=== PATIENT | male | born 1945 | race Caucasian/White ===

== ENCOUNTER → 2020-07-30 | Outpatient (CLI) | payer OTHER ==
[~2020-07-30] MED LIST: ASPIR 8181 M1 PO; ATORVASTATIN CA40 MG PO; CARVEDILOL12.5 MG PO; CIPRO500 MG PO; COREG25 MG PO; ELIQUIS5 MG PO; FLAGYL500 MG PO; LISINOPRIL20 MG PO; ZOFRAN ODT4 MG PO
== END ==
LOC: CAT 09:44
PROVIDERS: ATTEND Family Medicine
DX: S13.9XXA Sprain of joints and ligaments of unspecified parts of neck, initial encounter (principal); M50.31 Other cervical disc degeneration, high cervical region; M50.321 Other cervical disc degeneration at C4-C5 level; M50.322 Other cervical disc degeneration at C5-C6 level; M47.812 Spondylosis without myelopathy or radiculopathy, cervical region; M43.12 Spondylolisthesis, cervical region; M41.82 Other forms of scoliosis, cervical region; G93.89 Other specified disorders of brain; I67.2 Cerebral atherosclerosis; X58.XXXA Exposure to other specified factors, initial encounter; Y93.89 Activity, other specified; Y92.89 Other specified places as the place of occurrence of the external cause; Y99.8 Other external cause status

== ENCOUNTER → 2020-08-05 | Outpatient (CLI) | payer OTHER | LOC: MRI 08:54 | PROVIDERS: ATTEND Family Medicine | DX: M47.22 Other spondylosis with radiculopathy, cervical region (principal); M48.02 Spinal stenosis, cervical region; M25.78 Osteophyte, vertebrae; F43.10 Post-traumatic stress disorder, unspecified ==

== ENCOUNTER → 2020-09-04 | Outpatient (CLI) | payer OTHER ==
[~2020-09-04] MED LIST changes: +AMLODIPINE BESY10 MG PO; +ASA81BEC PO; +ATORVASTATIN CA80 MG PO; +CARVEDILOL25 MG PO; +DULOXETINE HCL30 MG PO; +FLEXERIL PO; +NEURONTIN100 MG PO
[2020-09-04 11:15] LABS: HEMATOCRIT 41.8 % (42.0-52.0); HEMOGLOBIN 13.7 gm/dL (14.0-18.0); MCH 27.1 pg (26.0-34.0); MCHC 32.7 g/dL (28.0-37.0); MCV 82.8 fL (80.0-100.0); RBC 5.05 mil/uL (4.50-6.00); RDW 15.2 % (10.5-14.5)
[2020-09-04 11:15] LABS: URINE BILIRUBIN NEGATIVE (Negative); URINE BLOOD NEGATIVE (Negative); URINE CLARITY CLEAR; URINE COLOR YELLOW; URINE GLUCOSE-RANDOM* NEGATIVE (Negative); URINE KETONES NEGATIVE (Negative); URINE LEUKOCYTES-REFLEX NEGATIVE (Negative); URINE NITRITE-REFLEX NEGATIVE (Negative); URINE PROTEIN (DIPSTICK) NEGATIVE (Negative); URINE UROBILINOGEN 0.2 E.U./dl (0.2-1.0)
[2020-09-04 11:35] LABS: APTT 28.2 Seconds (24.5-32.8); INR 0.99; PROTIME 10.8 Seconds (10.5-12.1)
[2020-09-04 11:38] LABS: ALBUMIN 3.6 g/dL (3.4-5.0); CREATININE 1.1 mg/dL (0.7-1.3); TOTAL BILIRUBIN 0.5 mg/dL (0.2-1.0)
== END ==
LOC: PAC 10:13
PROVIDERS: ATTEND Specialist
DX: Z01.812 Encounter for preprocedural laboratory examination (principal); M48.02 Spinal stenosis, cervical region; I10 Essential (primary) hypertension